=== PATIENT | female | born 1985 | race Caucasian/White ===

== ENCOUNTER 2016-07-12 20:11 | Emergency (ER) | payer OTHER ==
[~2016-07-12] VITALS: Ht 152.4 cm; Wt 60.5 kg
[2016-07-12 20:14] VITALS: BP 105/73; PULSE 89; RESP 16; O2SAT 100
[2016-07-12 21:47] LABS: BASOPHILS % (AUTO) 0.3 % (0-3); EOSINOPHILS % (AUTO) 2.6 % (0-5); MONOCYTES % (AUTO) 5.9 % (4-12); Mean Corpuscular Hemoglobin 30.7 pg (27.0-35.0); Mean Corpuscular Volume 92.9 fL (81-100); NEUTROPHILS % (AUTO) 61.4 % (40-74); Platelet Count 253 bil/L (150-400)
--- NOTE | 2016-07-12 21:56 | ED.REPORT ---
HPI-Abd Pain F Under 42 Date of Service Jul 12, 2016 ED Provider: Apolinar Goins MD Patient is a 31 year old female with known hiatal hernia presents and GERD who presents to the ED after she developed severe abdominal pain with nausea and vomiting after eating dinner tonight. The patient states that her emesis was green and bloody, but there was only 1x episode. She reports developing abdominal pain when she eats certain foods and often takes Omeprazole prior to eating. Patient took Omeprazole this evening. The patient has an appointment at [facility] later this month to discuss repairing the hiatal hernia. Patient states that stress often makes her symptoms worse and that she has been very stressed recently. Patient reports becoming anxious and often having panic attacks. Patent has previously had a cholecystectomy and a stone removed from her common bile duct. The patient denies alcohol or illicit drug abuse. She smokes cigarettes daily. Nursing Notes Stated Complaint: HIATAL HERNIA/VOMITING BLOOD Chief Complaint: Female Abdominal Pain Nursing Notes Reviewed: Yes Allergies: Coded Allergies: acetaminophen (Verified Allergy, Unknown, lightheaded/faint, nausea, ) hydrocodone (Verified Allergy, Unknown, lightheaded/faint, nausea, 07/12/16 ) General Time Seen by MD: 21:54 Chief Complaint Abdominal pain, Nausea, Vomiting mild Hx Obtained From: Patient Arrived By: Walk-in Sudden in Onset?: No Onset Occurred: 1 - 4 hours ago Symptom Duration: Since onset Location: : Abdomen upper Quality: Painful Severity: Current: Severe Severity: Maximum: Severe Recent Healthcare: No recent doctor visit, No recent hospitalization Similar Sx Previous: No Past Medical History Past Medical History hiatal hernia and GERD anxiety with panic attacks Past Surgical History cholecystectomy with prior removal of stone from common bile duct Smoking History Current Every Day Smoker Social History Alcohol Use: Denies alcohol use Drug Use: Denies drug use Other Social History: Good social support, Lives with children, Local resident Ambulatory Status Independent Review of Systems GI: Reports: Abdominal pain, Hematemesis (bloody and green), Nausea, Vomiting Complete sys rev & neg: except as marked. Psychiatric: Reports: Anxiety, Stress Physical Exam Initial Vital Signs Vital Signs (First) Date Time Temp Pulse Resp B/P Pulse Ox O2 Delivery O2 Flow Rate FiO2 07/12/16 20:14 36.3 89 16 105/73 100 Room Air Initial VS: Reviewed, Vital signs normal Head / Eyes: Atraumatic, Normocephalic, PERRL ENT: Mucous membranes moist, Conjunctiva normal, No scleral icterus Neck: Supple, Full range of motion Extremities: Vascular intact, Neuro intact Skin: Warm, Dry, No cyanosis Neurologic: Alert, Oriented, Nonfocal Psychiatric: Mood/affect normal, Behavior normal, Normal thought content General/Constitutional: Awake, Alert, No acute distress, Well hydrated Appearance / Presentation: Negative: Pale Respiratory / Chest: Breath sounds NL, Breath sounds = bilat, No respiratory distress, No rales, No rhonchi, No wheezing Cardiovascular: Heart rate NL, Regular rhythm, No murmurs Abdomen: Soft, No guarding, No rebound Tenderness/Guarding/Rebound: Positive: Tender epigastric Back: No midline vertebral tend, No CVA tenderness Interpretation & Diagnostics Lab Results Interpretation Result Diagram: 07/12/16213407/12/162134 Test 07/12/16 20:43 07/12/16 21:35 Hold Urine Received (Received) White Blood Count 9.5th/mm3 (3.8-10.1) Red Blood Count 4.20mil/mm3 (3.90-5.20) Hemoglobin 12.9g/dL (12.0-15.6) Hematocrit 39.0% (35.0-46.0) Mean Corpuscular Volume 92.9fL (81-100) Mean Corpuscular Hemoglobin 30.7pg (27.0-35.0) Mean Corpuscular Hemoglobin Concent 33.1% (32.0-37.0) Red Cell Distribution Width 13.1% (12.3-15.4) Platelet Count 253bil/L (150-400) Neutrophils (%) (Auto) 61.4% (40-74) Lymphocytes (%) (Auto) 29.6% (14-46) Monocytes (%) (Auto) 5.9% (4-12) Eosinophils (%) (Auto) 2.6% (0-5) Basophils (%) (Auto) 0.3% (0-3) Prothrombin Time 10.1sec (8.1-12.5) Prothromb Time International Ratio 0.95ratio Sodium Level 142mEq/L (134-144) Potassium Level 4.8mEq/L (3.5-5.2) Chloride Level 106mEq/L (97-108) Carbon Dioxide Level 25mmol/L (18-29) Blood Urea Nitrogen 15mg/dL (6-20) Creatinine 0.69mg/dL (0.57-1.00) Estimat Glomerular Filtration Rate 144mL/min (>59) Glucose Level 103mg/dL (60-99) Calcium Level 8.7mg/dL (8.5-10.1) Total Bilirubin 0.2mg/dL (0.0-1.2) Aspartate Amino Transf (AST/SGOT) 14U/L (0-50) Alanine Aminotransferase (ALT/SGPT) 13U/L (0-32) Alkaline Phosphatase 62U/L (25-150) Total Protein 7.1g/dL (6.4-8.4) Albumin 4.2g/dL (3.4-5.0) Hold Mayo Top Tube Received (Received) Lab values outside NL range: no clinical significance. Re-Eval/Medical Decision Med Decision/Clinical Course 31-year-old female with a history of symptomatic hiatal hernia and GERD. She has not been maximizing her antacid therapy. She is scheduled later in the month to see a specialist in [place]. No serious abnormality is noted today. She will increase her dose of omeprazole to 40 mg twice a day for a week. She will follow-up with her GI specialist to try and get the evaluation moved sooner. Return to the emergency room if there is worsening. Source of Hx: Old records Re-Evaluation/Progress : Time of Eval: 23:03 Patient Status: Condition improved Re-Evaluation/Progress Note: Rechecked the patient, who was informed of the results of her labs. She was not found to be anemic. She will record orthostatic vital signs prior to discharge. She is hypotensive but the patient states that she is always hypotensive. Patient understands and agrees with the plan to be discharged home. Discharge instructions and follow-up discussed. All questions were addressed. Return to the ED warnings given. Counseled Regarding: Diagnosis, Lab results, Need for follow-up, When/why to return to ED Discharge & Departure Primary Impression: Hiatal hernia Additional Impression: Vomiting blood Nausea presence: without nausea Qualified Code: K92.0 - Hematemesis Disposition: Home Discharge Condition All VS Reviewed: Yes Condition: Stable Patient Instructions: Hiatal Hernia (ED) Additional Instructions: Your blood count is normal. Your vital signs do not change with standing. Both of these facts indicate that the blood loss thus far has been minimal. He will likely have dark stool as the blood gets digested. Increase your omeprazole to 40 mg twice daily for a week. Follow-up with your primary provider if you have persistent symptoms. Return to the emergency room if you have significant continued vomiting of blood. Keep your scheduled appointment to get the hiatal hernia fixed. Call me at [phone] between the hours of 9 PM and 6 AM for the next couple of nights if you have any questions or concerns. Scribe Attestation Portions of this note were transcribed by Abena Peterson. I, Dr. Goins personally performed the history, physical exam and medical decision-making; I reviewed and confirmed the accuracy of the information in the transcribed note. Signed by: Tyrel David, 07/13/2016 0054 Apolinar Goins MD Jul 12, 2016 21:56 Abena Peterson Jul 12, 2016 22:05
[2016-07-12] MEDS ORDERED: 0.9% Sodium Chloride 1,000 ML IV ONE (22:08)
[2016-07-12] MEDS ORDERED: Pantoprazole 4 mg/mL 10 mL Inj IVPUSH ONE (22:10)
[2016-07-12] MEDS ORDERED: Ondansetron 2 mg/mL 2 mL Inj IVPUSH PRN (22:10)
[2016-07-12 22:19] LABS: INR 0.95 ratio
[2016-07-12 23:04] VITALS: BP 90/53; PULSE 79; RESP 16; O2SAT 98
[2016-07-12 23:06] VITALS: BP_SYST 91; BP_SYST 95; BP_DIAS 52; BP_DIAS 55; PULSE 72; PULSE 86; RESP 16; O2SAT 98
[2016-07-12 23:39] VITALS: BP 95/61; PULSE 69; RESP 18; O2SAT 93
== END 2016-07-12 23:51 | disposition home or self-care (01) ==
LOC: SED 20:11
DX: K44.9 Diaphragmatic hernia without obstruction or gangrene (principal); K92.0 Hematemesis; F43.9 Reaction to severe stress, unspecified; F41.0 Panic disorder [episodic paroxysmal anxiety]; K21.9 Gastro-esophageal reflux disease without esophagitis; F17.200 Nicotine dependence, unspecified, uncomplicated; Z90.49 Acquired absence of other specified parts of digestive tract; Z88.5 Allergy status to narcotic agent; Z88.8 Allergy status to other drugs, medicaments and biological substances
CPT/HCPCS: 36415; 80053; 85025; 85610; 86850; 93005; 96361; 96374; 96375; 99284; J2405; J7030